=== PATIENT | male | born 1950 | race Caucasian/White ===

== ENCOUNTER 2018-08-10 17:41 | Inpatient (IN) | payer MEDICARE, OTHER ==
[~2018-08-10] VITALS: Ht 170.2 cm; Wt 79.4 kg
[2018-08-10 18:16] VITALS: BP 161/86
[2018-08-10] MEDS ORDERED: NORVASC5 MG PO (18:19)
[2018-08-10] MEDS ORDERED: CARVEDILOL12.5 MG PO (18:19)
[2018-08-10] MEDS ORDERED: PLAVIX 75 MG TA75 M1 PO (18:19)
[2018-08-10] MEDS ORDERED: LIPITOR40 MG PO (18:19)
[2018-08-10] MEDS ORDERED: ASPIR 8181 MG PO (18:19)
[2018-08-10] MEDS ORDERED: VITAMIN D1000 UNI1 PO (18:20)
[2018-08-10] MEDS ORDERED: METFORMIN HCL500 MG PO (18:20)
[2018-08-10] MEDS ORDERED: QUINAPRIL 20 MG20 MG PO (18:20)
[2018-08-10] MEDS ORDERED: IMDUR 30 MG TAB30 M1 PO (18:20)
[2018-08-10] MEDS ORDERED: SYNTHROID125 MC1 PO (18:20)
[2018-08-10 19:16] LABS: INFLUENZA A ANTIGEN None Detected (None Detect); INFLUENZA B ANTIGEN None Detected (None Detect)
[2018-08-10 20:05] LABS: ABSOLUTE BASOPHILS 0.1 thou/uL (0.0-0.2); ABSOLUTE EOSINOPHILS 0.2 thou/uL (0.0-0.7); ABSOLUTE LYMPHOCYTES 1.2 thou/uL (0.8-5.3); ABSOLUTE MONOCYTES 1.7 thou/uL (0.0-1.2); ABSOLUTE NEUTROPHILS 6.8 thou/uL (1.6-8.1); BASOPHILS 1.1 %; EOSINOPHILS 1.9 %; HEMATOCRIT 38.5 % (42.0-52.0); HEMOGLOBIN 12.9 gm/dL (14.0-18.0); LYMPHOCYTES 12.2 %; MCH 31.2 pg (26.0-34.0); MCHC 33.6 g/dL (28.0-37.0); MCV 92.9 fL (80.0-100.0); MONOCYTES 16.9 %; MPV 7.8 fl. (7.2-11.1); NUCLEATED RBCS 0 /100WBC; PLATELET COUNT* 229 thou/uL (150-400); POLYS 67.9 %; RBC 4.14 mil/uL (4.50-6.00); WBC 10.1 thou/uL (4.0-11.0)
[2018-08-10 20:14] LABS: INR 1.1; PROTIME 11.3 Seconds (9.20-11.50)
[2018-08-10 20:15] LABS: CALCIUM 9.1 mg/dL (8.5-10.1); CREATININE 1.2 mg/dL (0.6-1.3)
[2018-08-10 20:27] LABS: ALBUMIN 3.6 g/dL (3.4-5.0); TOTAL BILIRUBIN 0.6 mg/dL (<0.1-1.0); TOTAL PROTEIN 8.2 g/dL (6.4-8.2)
[2018-08-10 20:29] LABS: TROPONIN-I LEVEL 8.79 ng/mL (<0.06)
[2018-08-10 22:00] VITALS: BP 129/55
[2018-08-10 22:16] VITALS: BP 140/60
[2018-08-10 22:28] LABS: URINE BILIRUBIN NEGATIVE (Negative); URINE BLOOD 1+ (Negative); URINE CLARITY CLEAR; URINE COLOR YELLOW; URINE GLUCOSE-RANDOM NEGATIVE (Negative); URINE KETONES NEGATIVE (Negative); URINE NITRITE-REFLEX NEGATIVE (Negative); URINE PROTEIN 2+ (Negative); URINE UROBILINOGEN 0.2 E.U./dl (0.2-1.0)
[2018-08-10 22:31] LABS: URINE LEUKOCYTES-REFLEX 3+ (Negative)
[2018-08-10 22:51] LABS: BACTERIA-REFLEX >30 Many /HPF (None Seen); URINE WBC-REFLEX >25 Many /HPF (0-5)
[2018-08-10 22:52] LABS: CRYSTALS None Seen /LPF (None Seen); HYALINE CASTS 0-3 Few /LPF (None Seen); MUCUS None Seen strn/LPF (None Seen); SQUAMOUS NONE SEEN /LPF (0-3); URINE RBC 0-2 Rare /HPF (0-2); WBC CLUMPS Few (None Seen)
[2018-08-11] VITALS (11 sets, daily range): BP systolic 139–162; BP diastolic 63–81
[2018-08-11 03:05] LABS: BE -1.5 mmol/L (-2 to +3); HCO3 22.6 mmol/L (22.0-26.0); PCO2 36.4 mmHg (35.0-45.0); PO2 77.7 mmHg (75.0-100.0)
--- NOTE | 2018-08-11 04:44 | NUR ---
PT RECEIVED FROM ED. SAT MAINTAINED IN RA. CALL LIGHT WITHIN REACH AND BED IN LOW POSITION. PT VOMITED APPROX AMOUNT 5ML. SAT DECREASED, NOT MAINTAINED IN NC, CONNECTED TO NON-REBREATHER ON 15L, CALLED INFANTRY INDIRECT FIRE CREWMEMBER. SAT 82% WITH NRB. PT KEPT ON BIPAP 100% FIO2. SAT 98%, ABLE TO FOLLOW COMMANDS AND TALK. C-XRAY AND EKG DONE AND CHARTED. DR. SHER INFORMED. ORDERS FOLLOWED FOR CT. PT TRANSFERRED DOWN TO ICU.
--- NOTE | 2018-08-11 08:00 | NUR ---
Pt received from Tele at 0415; transferred due to resp distress which occurred after pt vomited and possibly aspirated. Pt on BIPAP. VSS except T 102.4 axillary. Family members X3 arrived to room soon afterward, including pt's dtr and ( arrived after other 2 visitors). Pt calm and cooperative, reports tolerating BIPAP and mask well. Saeed placed, draining clr yellow urine. IV antibiotics administered. Rash on right side of chest which appears to be caused by [id number] contact between R arm and chest. R arm appears contracted and immobile, and resting against chest. Will continue to monitor.
--- NOTE | 2018-08-11 16:23 | NUR ---
PT TRANSFERRED TO [facility] FLOOR AT 1540 ON A WHEELCHAIR ACCOMPANIED BY TWO FAMILY MEMBERS, AND NURSING STAFF. VSS. SINUS RYHTM ON THE FIRER POWERHOUSE. NO TEMP. 98.8 ORALLY. NO COMPLAINT. DIET ORDERED, PT AWAITING FOR DINNER IN BED. ECHO COMPLETED AT BEDSIDE. PT IN BED CALL LIGHT AT REACH. WILL CONTINUE TO MONITOR.
[2018-08-11 16:46] LABS: CALCIUM 8.1 mg/dL (8.5-10.1); CREATININE 1.2 mg/dL (0.6-1.3); POTASSIUM 3.7 mmol/L (3.5-5.1)
--- NOTE | 2018-08-11 16:56 | EKG ---
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: Reza JACKSON : 1950 Requested By: Alonzo Askew Order Number: [id number] MD: Иван Eric Measurements Intervals [place] Rate: 68 P: 30 OK: 262 QRS: -30 QRSD: 99 T: 134 QT: 417 QTc: 444 Interpretive Statements Sinus rhythm Prolonged OK interval Inferior infarct, old Abnrm T, consider ischemia, anterolateral lds No previous ECG available for comparison Electronically Signed On 08-11-2018 16:56:48 BLUNGER LOADER by Иван Eric [email or web address] <ELECTRONICALLY SIGNED> By: Иван Eric MD, FACC 08/11/18 1656 27 27 Иван Eric MD, [facility] /EPI
--- NOTE | 2018-08-11 17:00 | EKG ---
[place] [address] ELECTROCARDIOGRAM REPORT Name: JERARDO ROMERO V Room: [address] ADM IN M.R.#: [id number] Admission: 08/10/18 Attend Phys: Randolph Amezcua Discharge: Date of : 48 Report #: [id number] THIS REPORT FOR: //name// [facility] Test Date: 2018-08-11 Test Time: 02:51:50 Pat Name: JERARDO ROMERO Department: Room: [facility] Gender: M Logistics Lead: : 1950 Requested By: Kavitha Mojica Order Number: [id number] MD: Иван Eric Measurements Intervals [place] Rate: 114 P: [place]: QRS: -16 QRSD: 85 T: 132 QT: 308 QTc: 425 Interpretive Statements sinus tachycardia Ventricular premature complex Inferior infarct, old Anteroseptal infarct, old Repol abnrm suggests ischemia, diffuse leads No previous ECG available for comparison Electronically Signed On 08-11-2018 17:00:14 MANUFACTURING ENGINEER SUPERVISOR by Иван Eric [email or web address] <ELECTRONICALLY SIGNED> By: Иван Eric MD, [facility] 08/11/18 1700 0251 [id number] Иван Eric MD, [facility] /EPI
--- NOTE | 2018-08-11 17:10 | 2DMMODE ---
[place] [address] 2 D/M-MODE ECHOCARDIOGRAM Name: JERARDO ROMERO V Room: [address] IN [facility]#: [id number] Admission: 08/10/18 Attend Phys: Kavitha Mojica Discharge: Date of : 48 Date of Service: 08/11/18 1709 Report #: [id number] THIS REPORT FOR: //name// APPROVED REPORT Study performed: 08/11/2018 15:55:32 EXAM: Comprehensive 2D, Doppler, and color-flow Echocardiogram Patient Location: In-Patient Room #: 200 Status: routine BSA: 1.91 HR: 63 bpm BP: 153/66 mmHg Rhythm: NSR Other Information Study Quality: Good Indications Acute MS 2D Dimensions IVSd: 12.30 (7-11mm) LVOT Diam: 23.98 (18-24mm) LVDd: 54.30 mm PWd: 10.69 (7-11mm) Ascending Ao: 38.18 (22-36mm) LVDs: 43.15 (25-40mm) Aortic Root: 37.67 mm Volumes Left Atrial Volume (Systole) LA ESV Index: 38.20 mL/m2 Aortic Valve AoV Peak Mayo.: 0.89 m/s AO Peak Gr.: 3.16 mmHg LVOT Max P.85 mmHg AO Mean Gr.: 1.97 mmHg LVOT Mean P.88 mmHg LVOT Max V: 0.68 m/s AO V2 VTI: 23.05 cm LVOT Mean V: 0.43 m/s STONE (VTI): 2.99 cm2 LVOT V1 VTI: 15.29 cm Mitral Valve E/A Ratio: 0.65 MV Decel. Time: 192.69 ms MV E Max Mayo.: 0.75 m/[place] [address] 2 D/M-MODE ECHOCARDIOGRAM Name: JERARDO ROMERO V Room: [address] IN [facility]#: [id number] Admission: 08/10/18 Attend Phys: Kavitha Mojica Discharge: Date of : 48 Date of Service: 08/11/18 1709 Report #: [id number] MV PHT: 55.88 ms MVA (PHT): 3.94 cm2 TDI E/Lateral E': 10.71 E/Medial E': 15.00 Medial E' Mayo.: 0.05 m/s Lateral E' Mayo.: 0.07 m/s Pulmonary Valve PV Peak Mayo.: 0.74 m/s PV Peak Gr.: 2.17 mmHg Left Ventricle The left ventricle is normal size. There is global hypokinesis of the left ventricle. There is normal left ventricular wall thickness. Left ventricular systolic function is moderately decreased. LVEF is 35-40%. Grade I - abnormal relaxation pattern. Right Ventricle The right ventricle is normal size. The right ventricular systolic function is normal. Atria Left atrium is mildly dilated. Right atrium is mildly dilated. Aortic Valve The aortic valve is normal in structure. Trace aortic regurgitation. There is no aortic valvular stenosis. Mitral Valve The mitral valve is normal in structure. Mild mitral regurgitation. No evidence of mitral valve stenosis. Tricuspid Valve The tricuspid valve is normal in structure. Unable to assess PA pressure. Trace tricuspid regurgitation. Pulmonic Valve The pulmonary valve is normal in structure. There is no pulmonic valvular regurgitation. Great Vessels The aortic root is normal in size. IVC is normal in size and collapses >50% [place] [address] 2 D/M-MODE ECHOCARDIOGRAM Name: JERARDO ROMERO Lucia Room: [address] IN [facility]#: [id number] Admission: 08/10/18 Attend Phys: Kavitha Mojica Discharge: Date of : 48 Date of Service: 08/11/18 1709 Report #: [id number] There is no pericardial effusion. <Conclusion> The left ventricle is normal size. There is normal left ventricular wall thickness. Left ventricular systolic function is moderately decreased. LVEF is 35-40%. Grade I - abnormal relaxation pattern. There is global hypokinesis of the left ventricle. Left atrium is mildly dilated. Right atrium is mildly dilated. Trace aortic regurgitation. Mild mitral regurgitation. Unable to assess PA pressure. Trace tricuspid regurgitation. IVC is normal in size and collapses >50% with inspiration. <ELECTRONICALLY SIGNED> By: Иван Eric MD, FACC 08/11/181708 08 08 Иван Eric MD, FACC /INF
[2018-08-11 17:31] LABS: TROPONIN-I LEVEL 20.9 ng/mL (<0.06)
--- NOTE | 2018-08-11 17:33 | NUR ---
TROPONIN LEVEL 20.9. DR KRISHNAMURTHY PAGED . DR KRISHNAMURTHY CALLED BACK AND SAID HE IS AWARE TROPONIN WAS GOING TO BE ELEVATED. THAT HE WILL FOLLOW UP WITH THAT.
[2018-08-12] VITALS (7 sets, daily range): BP systolic 114–137; BP diastolic 50–70
--- NOTE | 2018-08-12 05:31 | NUR ---
patient remains without chest pain this shift. patient denies discomfort. o2 sat maintained on 2l o2 nc although lung sounds remain coarse. patient suspected to be at risk for aspiration due to difficulty swallowing thin liquids and slight cough afterwards. patient remains npo for cardiology consult and ST evaluation. patient verbalizes understanding. pt incontinent of bowel. tl care and barrier cream provided. call light within reach
--- NOTE | 2018-08-12 10:13 | NUR ---
RECEIVED REPORT FROM GEOFF AND ASSUMED CARE OF PT @ 2348.PT IS A/O X4,VSS,TRACING SB WITH 1ST DEGREE ON THE MONITOR.PT REMAINS ON 2L O2 NC.ASSESSMENT CHARTED.IV LEFT FOREARM PATENT AND SALINE LOCKED. IV #2 LEFT FOREARM PATENT AND SALINE LOCKED.IV ANTIBIOTICS GIVEN.MICHELLE SECURE AND PATENT.PT NPO STATUS PENDING CARDIOLOGY SEEING THEM TODAY.PT IS CALM AND COOPERATIVE WITH NO C/O PAIN AT TIME OF ASSESSMENT.PT IS UP WITH ASSIST OF ONE.PT LEFT RESTING IN BED WITH CALL LIGHT AND FALL PRECAUTIONS IN PLACE.WILL COTNINUE TO MONITOR.
--- NOTE | 2018-08-12 15:21 | NUR ---
MET WITH PT TO DISCUSS HOME SITUATION/DC PLANNING. PT LIVES WITH . HE STATES HE IS VERY DEPENDENT ON HER, HE HAS HAD 'STROKES'. CALL TO /DANGELO. SHE IS DPOA AND WILL BRING IN COPY OF FORM. SHE STATED THEY RECENTLY MOVED FROM [place] TO A HANDICAP ACCESSIBLE APT NEAR THEIR DTR/PREM WHO LIVE ACROSS THE STREET. PT HAS RIGHT SIDED WEAKNESS FROM STROKE AND ASSISTS WITH ADLS, AND DOES ALL IADLS. THEY HAVE A STAND ASSIST, MOTORIZED BED, YAQUELIN CANE, W/C AND SHOWER BENCH. PT HAS HAD REHAB STAY IN 2017 WELL SNF IN PAST. HE HAS DONE OUTPT THERAPY AT [facility] IN [place]. SHE IS INTERESTED IN HIM GOING TO REHAB AGAIN IF QUALIFIES, IF NOT, WOULD PREFER TO GO HOME WITH HH SHE'S WORRIED HE'D GET DEPRESSED IN SNF. DISCUSSED HH OPTIONS WITH HER ALSO. SHE HAS NO PREFERENCE. DISCUSSED WITH DR FAGAN, REHAB CONSULT PENDING. WILL FOLLOW
--- NOTE | 2018-08-12 18:32 | NUR ---
VSS.CARDIAC MONITORING IN PLACE WITH NO CHANGES.PT REMAINS ON 2L O2 NC.NO C/O PAIN.PT HAS BEEN REPOSITIONED Q2 HOUR.IV LEFT FOREARM PATENT AND SALINE LOCKED.IV #2 PATENT AND SALINE LOCKED.PT TO BE NPO AT MIDNIGHT FOR CATH IN AM.PT INFORMED OF PLAN OF CARE AND COMMUNICATES UNDERSTANDING.HOURLY ROUNDING COMPELTED FOR PT SAFETY.CALL LIGHT AND FALL PRECAUTIONS IN PLACE.WILL CONTINUE TO MONITOR FOR DURATION OF SHIFT.
[2018-08-13] VITALS (7 sets, daily range): BP systolic 112–169; BP diastolic 58–80
--- NOTE | 2018-08-13 04:46 | NUR ---
RECEIVED REPORT AND ASSUMED CARE AT 1900. VSS. CARDIAC MONITORING IN PLACE. PT DENIES ANY COMPLAINTS OF PAIN. ASSESSMENT COMPLETED CHARTED. DISCUSSED PLAN OF CARE WITH PT, VERBALIZED UNDERSTANDING. PT TO HAVE CARDIAC CATH 08/13/18. NPO AT MIDNIGHT. PT UP WITH ASSIST WITH WALKER. ON 2L NC. BED LOCKED IN LOWEST POSITION, CALL LIGHT WITHIN REACH, BED ALARM ON. POSITION CHANGED EVERY TWO HOURS, HEELS OFF LOADED. HOURLY ROUNDING COMPLETED AND ALL NEEDS MET. WILL CONTINUE TO MONITOR
[2018-08-13 05:12] LABS: ABSOLUTE BASOPHILS 0.1 thou/uL (0.0-0.2); ABSOLUTE EOSINOPHILS 0.4 thou/uL (0.0-0.7); ABSOLUTE LYMPHOCYTES 1.4 thou/uL (0.8-5.3); ABSOLUTE MONOCYTES 0.9 thou/uL (0.0-1.2); ABSOLUTE NEUTROPHILS 5.7 thou/uL (1.6-8.1); BASOPHILS 0.7 %; EOSINOPHILS 4.8 %; HEMATOCRIT 31.5 % (42.0-52.0); LYMPHOCYTES 16.6 %; MCH 31.4 pg (26.0-34.0); MCHC 33.9 g/dL (28.0-37.0); MCV 92.6 fL (80.0-100.0); MONOCYTES 10.9 %; MPV 8.1 fl. (7.2-11.1); NUCLEATED RBCS 0 /100WBC; PLATELET COUNT* 168 thou/uL (150-400); RDW-CV 14.2 % (10.5-14.5); WBC 8.4 thou/uL (4.0-11.0)
[2018-08-13 05:14] LABS: HEMOGLOBIN 10.7 gm/dL (14.0-18.0)
--- NOTE | 2018-08-13 08:18 | CON ---
[address] [address] CONSULTATION Name: JERARDO ROMERO V Room: [address] IN .R.#: [id number] Admission: 08/10/18 Attend Phys: Randolph Amezcua Discharge: Date of : 48 Report #: [id number] THIS REPORT FOR: //name// CC: Caroline Washburn DO Kavitha Mojica DATE OF SERVICE: 08/11/2018 INDICATION: Non-ST elevation myocardial infarction. HISTORY OF PRESENT ILLNESS: The patient is a very pleasant 68-year-old gentleman who was admitted to the hospital with sore throat, cough and right-sided pneumonia. He denied any chest pain. He did have some shortness of breath occasionally. He denies orthopnea. In this setting, he had a troponin of 8. EKG did not show any evidence of ST elevation. The patient has remained pain free since admission to the hospital. He does report having several stents placed in 2015 at [facility]. He also reports having CVA on 2 separate occasions. He presently denies any orthopnea or paroxysmal nocturnal dyspnea. He is without other cardiac complaint at this time. PAST MEDICAL HISTORY: 1. Coronary artery disease with percutaneous coronary intervention remotely. 2. CVA x 2. 3. Hypertension. 4. Dyslipidemia. 5. Type 2 diabetes mellitus. 6. Hypothyroidism. 7. History of cholecystectomy. ALLERGIES: No known drug allergies. HOME MEDICATIONS: Amlodipine 5 mg p.o. q. day, aspirin 81 mg p.o. q. day, atorvastatin 40 mg p.o. q. day, carvedilol 12.5 mg p.o. b.i.d., Plavix 75 mg p.o. q. day, Imdur 30 mg p.o. q. day, levothyroxine 125 mcg p.o. q. day, metformin 500 mg p.o. b.i.d., Accupril 20 mg p.o. b.i.d., vitamin D 1000 units p.o. daily. SOCIAL HISTORY: The patient is . He smoked cigars up until 2 years ago. He does not drink alcohol. FAMILY HISTORY: The patient's father had coronary disease. REVIEW OF SYSTEMS: A 14-point review of systems is positive for right-sided weakness from his strokes. He has had some weight loss [place] [address] CONSULTATION Name: JERARDO ROMERO V Room: [address]#: [id number] Admission: 08/10/18 Attend Phys: Randolph Amezcua Discharge: Date of : 48 Report #: [id number] He reports a fever here in the hospital. He has a cough productive of clear to yellow sputum. He reports diabetes and thyroid disease. He reports seasonal allergies as a child. He denies any history of dysuria, but does have some nocturia. He wears glasses without acute visual change. PHYSICAL EXAMINATION: VITAL SIGNS: Blood pressure 147/69, pulse 64 and regular. GENERAL: This is a pleasant elderly gentleman in no distress. Mood and affect appropriate. HEENT: Extraocular muscles intact. Mucous membranes are moist. NECK: Examination of the neck shows no jugular venous distention. I do not appreciate any carotid bruit. CHEST: Reveals coarse breath sounds throughout. CARDIOVASCULAR: Reveals a regular rhythm with normal S1 and S2. I do not appreciate gallop or murmur. ABDOMEN: Reveals normal bowel sounds. The abdomen is soft, nontender. EXTREMITIES: Shows no edema. Peripheral pulses 2+ and palpable. There is right-sided weakness. A 12-lead EKG shows sinus rhythm without acute ST or T-wave abnormality. NT-proBNP is 7587. Initial troponin is 8.79. IMPRESSION AND RECOMMENDATIONS: 1. Elevated troponin, likely due to non-ST elevation myocardial infarction versus type 2 myocardial infarction with strain secondary to sepsis and heart failure. At this point in time, I have elected to obtain an echocardiogram. May need to proceed with catheterization. Serial troponins have been ordered and are pending. Continue Plavix and aspirin at this time. 2. Hypertension, adequately controlled on current cardiac regimen. 3. Dyslipidemia. Continue atorvastatin at current dose. 4. Acute pneumonia, per primary physician. 5. Acute on chronic heart failure. Echocardiogram ordered. The patient appears relatively compensated at this point in time. <ELECTRONICALLY SIGNED> By: Иван Eric MD, FACC 08/13/18 0818 1538 [id number] Eric MD, FACC /nt
--- NOTE | 2018-08-13 09:11 | NUR ---
RECEIVED INPATIENT REHAB CONSULT AND ACKNOWLEDGED BY DR. MUÑIZ AND BEATER AND PULPER FEEDER. AWAITING PT/TO EVALUATIONS FOR FURTHER INFORMATION ON FUNCTIONAL PERFORMANCE. WILL CONTINUE TO FOLLOW THROUGH POC. THANK YOU
--- NOTE | 2018-08-13 12:16 | NUR ---
VSS, ASSUMED CARE THIS AM, ASSESSMENT PERFORMED AND CHARTED, FALL PRECAUTIONS IN PLACE AND CALL LIGHT IN REACH, PT IS A&O4, ON 2L NC, UP QITH ONE TO BEDSIDE, PT IS TRACIG SR ON THE MONITOR, HAS MICHELLE IN PLACE AND IS DRAINIG, PT GOAL IS TO SIT UP IN CHAIR, HE HAS RIGHT ARMWEAKNWSS FROM ILD STROKW, HW IS AT RISK FOR ASPIRATION AND SPEECH IS WORKING WITH HIM, PT MIGHT HEART CATH TODAY AND IS NPO. WILL FOLLOW WITH PLAN OF CARE.
--- NOTE | 2018-08-13 14:12 | NUR ---
RE: CHF medication education. Met with patient to discuss heart failure medication. Pt's present during discussion. Review focused on carvedilol, lisinopril & isosorbide. Discussed rationale for therapy and importance of compliance with prescribed regimen. Reviewed possible side effects and potential management strategies. Left medication information sheet with patient. Provided pharmacy contact information for any further questions or issues. thank you.
--- NOTE | 2018-08-13 18:03 | NUR ---
vss, PT IS PROGRESSING TOWARD GOAL, PT HAS BEEN UP IN CHAIR, WORKED WITH PT/OT/ST, HOURLY ROUNDS COMPLETED AND CHART CHECKED.
[2018-08-14] VITALS: BP 146/51
[2018-08-14 04:00] VITALS: BP 163/66
--- NOTE | 2018-08-14 04:55 | NUR ---
ASSUMED PT CARE AT 1930, NURSING ASSESSMENT COMPLETED AT START OF SHIFT. PT VOICED NO CONCERNS, DENIES PAIN THIS SHIFT. SUPERVISOR ENGRAVING IN PLACE, TRACING SINUS BRADYCARDIA/SINUS RHYTHM THIS SHIFT, HR IN MID 40S-MID 60'S. HOURLY ROUNDING COMPLETED, Q2H REPOSITIONING COMPLETED. FALL PRECAUTIONS IN PLACE. CALL LIGHT WITHIN REACH.
[2018-08-14 08:11] VITALS: BP 170/72
[2018-08-14 08:46] LABS: ABSOLUTE BASOPHILS 0.1 thou/uL (0.0-0.2); ABSOLUTE EOSINOPHILS 0.3 thou/uL (0.0-0.7); ABSOLUTE LYMPHOCYTES 1.3 thou/uL (0.8-5.3); ABSOLUTE MONOCYTES 0.8 thou/uL (0.0-1.2); ABSOLUTE NEUTROPHILS 4.9 thou/uL (1.6-8.1); BASOPHILS 1.1 %; EOSINOPHILS 4.6 %; HEMATOCRIT 32.5 % (42.0-52.0); HEMOGLOBIN 11.2 gm/dL (14.0-18.0); MCH 31.7 pg (26.0-34.0); MCHC 34.6 g/dL (28.0-37.0); MCV 91.6 fL (80.0-100.0); MONOCYTES 10.9 %; MPV 7.9 fl. (7.2-11.1); NUCLEATED RBCS 0 /100WBC; PLATELET COUNT* 205 thou/uL (150-400); POLYS 66.4 %; RBC 3.54 mil/uL (4.50-6.00); RDW-CV 13.8 % (10.5-14.5); WBC 7.4 thou/uL (4.0-11.0)
--- NOTE | 2018-08-14 11:59 | NUR ---
Pt has opted to dc home with HH. Spoke with Pt and , referral sent to [facility] . in room and will transport
[2018-08-14 12:00] VITALS: BP 135/60; BP 137/66
--- NOTE | 2018-08-14 12:08 | NUR ---
VSS, ASSUMED CARE OF PT THIS AM, ASSESSMENT PERFORMED AND CHARTED, FALL PRECAUTIONS IN PLACE AND CALL LIGHT IN REACH, PT IS A&O4 UP WITH ONE, BELT, WALKER, TO BS, HE IS TRACING SR ON THE MONITOR ON RA, DENIES ANY PAIN, HAS RIGHT ARM WEAKNESS, PT GOAL IS TO D/C MICHELLE, D/C TO HOME, AND SIT UP IN CHAIR, WILL FOLLOW WITH PLAN OF CARE AND HOURLY ROUNDS.
[2018-08-14 13:10] VITALS: BP 137/66
--- NOTE | 2018-08-14 14:21 | NUR ---
SPOKE WITH PT AND IN ROOM. PT HAS DETERMINED HE IS WANTING TO GO HOME WITH HH AT THIS TIME VS INPATIENT REHAB. THANK YOU FOR THE CONSULT
--- NOTE | 2018-08-14 14:35 | NUR ---
VSS, FILLED OUT D/C ORDERS, TOOK OUT IV, AND TELE MONITOR, PROVITED DR FOLLOW UP APPOINTMENT, EXPLAINED D/C INSTRUCTIONS, HELPED GATHERED PT BELONGINGS, TOOK OUT MICHELLE CATH, PT WAS TAKEN OUT VIA WHEEL CHAIR TO CAR BY STAFF,
== END 2018-08-14 14:20 | disposition home health service (06) | DRG 871 ==
LOC: M.ERS 17:41 → M.2W 20:35 → M.TBA-ER 20:35 → M.ICU 20:35 → M.2W 22:58 → M.ICU 08-11 04:14 → M.2W 08-11 15:00
PROVIDERS: Family Medicine; Internal Medicine; Internal Medicine Cardiovascular Disease; Nurse Practitioner Family; ADMIT Internal Medicine
PROC: 5A09357 Assistance with Respiratory Ventilation, Less than 24 Consecutive Hours, Continuous Positive Airway Pressure (ICD-10-PCS; principal; 2018-08-11)
DX: A41.9 Sepsis, unspecified organism (principal); I21.4 Non-ST elevation (NSTEMI) myocardial infarction; J69.0 Pneumonitis due to inhalation of food and vomit; J96.21 Acute and chronic respiratory failure with hypoxia; E03.9 Hypothyroidism, unspecified; I25.10 Atherosclerotic heart disease of native coronary artery without angina pectoris; E78.5 Hyperlipidemia, unspecified; I11.0 Hypertensive heart disease with heart failure; I50.9 Heart failure, unspecified; Z86.73 Personal history of transient ischemic attack (TIA), and cerebral infarction without residual deficits; I25.2 Old myocardial infarction; Z90.49 Acquired absence of other specified parts of digestive tract; Z82.49 Family history of ischemic heart disease and other diseases of the circulatory system; Z87.891 Personal history of nicotine dependence; Z79.82 Long term (current) use of aspirin; Z79.899 Other long term (current) drug therapy

== ENCOUNTER 2018-11-06 16:31 | Inpatient (IN) | payer MEDICARE, OTHER ==
[~2018-11-06] VITALS: Ht 172.7 cm; Wt 75.4 kg
[~2018-11-06 16:31] MED LIST: ASPIR 8181 MG PO; CARVEDILOL12.5 MG PO; IMDUR 30 MG TAB30 M1 PO; LIPITOR40 MG PO; METFORMIN HCL500 MG PO; NORVASC5 MG PO; PLAVIX 75 MG TA75 M1 PO; QUINAPRIL 20 MG20 MG PO; SYNTHROID125 MC1 PO; VITAMIN D1000 UNI1 PO
[2018-11-06 16:38] VITALS: BP 120/87
[2018-11-06] MEDS ORDERED: LEVAQUIN 500 M500 M3 PO (16:45)
[2018-11-06] MEDS ORDERED: ULTRAM 50MG TAB50 MG PO (16:45)
[2018-11-06 17:06] LABS: ABSOLUTE BASOPHILS 0.1 thou/uL (0.0-0.2); ABSOLUTE EOSINOPHILS 0.4 thou/uL (0.0-0.7); ABSOLUTE LYMPHOCYTES 1.3 thou/uL (0.8-5.3); ABSOLUTE NEUTROPHILS 5.8 thou/uL (1.6-8.1); BASOPHILS 0.7 %; EOSINOPHILS 4.3 %; HEMATOCRIT 32.7 % (42.0-52.0); HEMOGLOBIN 10.9 gm/dL (14.0-18.0); LYMPHOCYTES 15.3 %; MCH 30.2 pg (26.0-34.0); MCHC 33.3 g/dL (28.0-37.0); MCV 90.7 fL (80.0-100.0); MONOCYTES 11.2 %; MPV 7.3 fl. (7.2-11.1); NUCLEATED RBCS 0 /100WBC; PLATELET COUNT* 265 thou/uL (150-400); POLYS 68.5 %; RDW-CV 15.6 % (10.5-14.5); WBC 8.5 thou/uL (4.0-11.0)
[2018-11-06 17:15] LABS: INR 1.2; PROTIME 11.8 Seconds (9.20-11.50)
[2018-11-06 17:17] LABS: ALBUMIN 3.5 g/dL (3.4-5.0); CALCIUM 9.1 mg/dL (8.5-10.1); CREATININE 1.3 mg/dL (0.6-1.3); POTASSIUM 4.1 mmol/L (3.5-5.1); TOTAL BILIRUBIN 0.5 mg/dL (<0.1-1.0); TOTAL PROTEIN 7.7 g/dL (6.4-8.2)
[2018-11-06 18:09] LABS: BE -2.4 mmol/L (-2 to +3); PO2 89.2 mmHg (75.0-100.0); pH 7.496 (7.340-7.450)
[2018-11-06 21:26] LABS: URINE BILIRUBIN NEGATIVE (Negative); URINE BLOOD TRACE (Negative); URINE CLARITY CLEAR; URINE COLOR YELLOW; URINE GLUCOSE-RANDOM NEGATIVE (Negative); URINE KETONES TRACE (Negative); URINE LEUKOCYTES-REFLEX 1+ (Negative); URINE NITRITE-REFLEX NEGATIVE (Negative); URINE PROTEIN 2+ (Negative); URINE SPECIFIC GRAVITY 1.025 (1.005-1.030)
[2018-11-06 21:34] LABS: SQUAMOUS >10 Many /LPF (0-3)
[2018-11-06 21:35] LABS: CASTS None Seen /LPF (None Seen); CRYSTALS None Seen /LPF (None Seen); MUCUS 0-3 Light strn/LPF (None Seen); URINE RBC None Seen /HPF (0-2); URINE WBC-REFLEX >25 Many /HPF (0-5)
[2018-11-06 22:08] VITALS: BP 138/75
[2018-11-06 23:00] VITALS: BP 150/67
[2018-11-07 04:00] VITALS: BP 154/85
--- NOTE | 2018-11-07 04:53 | NUR ---
RECEIVED REPORT FROM ED RN. PT TRANSFERRED TO 207. PT A&OX4. VSS. FUNERAL HOME GENERAL MANAGER IN PLACE. ADMISSION HISTORY & PHYSICAL ASSESSMENT COMPLETED AND CHARTED. FALL FORM SIGNED. PT ORIENTED TO ROOM AND CALL LIGHT. PT DENIES ANY PAIN OR DISCOMFORT. PT RESTED WELL ON BED . HOURLY ROUNDING OBSERVED. CALL LIGHT WITHIN REACH.
[2018-11-07 08:00] VITALS: BP 144/78
[2018-11-07 11:26] VITALS: BP 132/67
--- NOTE | 2018-11-07 11:53 | EKG ---
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: Manager Financial Reporting: Reza JACKSON : 1950 Requested By: Ronit Marques Order Number: [id number] MD: Robin Purcell Measurements Intervals [place] Rate: 66 P: 33 ND: 280 QRS: 11 QRSD: 100 T: -75 QT: 427 QTc: 448 Interpretive Statements Sinus rhythm Ventricular premature complex Prolonged ND interval Borderline low voltage, extremity leads Borderline repolarization abnormality Baseline wander in lead(s) V2 Compared to ECG 08/11/2018 02:51:50 First degree AV block now present Sinus tachycardia no longer present Myocardial infarct finding no longer present Possible ischemia no longer present Electronically Signed On 11-07-2018 11:53:23 CDT by Robin Purcell [email or web address] <ELECTRONICALLY SIGNED> By: Robin Purcell MD, [facility] 11/07/18 1153 1644 1644 Robin Purcell MD, [facility] /EPI
[2018-11-07 13:44] LABS: HEMOGLOBIN 10.6 gm/dL (14.0-18.0)
[2018-11-07 13:52] LABS: CREATININE 1.2 mg/dL (0.6-1.3); POTASSIUM 3.5 mmol/L (3.5-5.1)
[2018-11-07 14:20] LABS: % SATURATION 10 % (20-39); IRON 24 ug/dL (50-175)
[2018-11-07 17:14] VITALS: BP 129/64
--- NOTE | 2018-11-07 17:36 | NUR ---
PATIENT RESTING IN BED. AT BEDSIDE. PATIENT DENIES ANY PAIN. PATIENT DENIES ANY TROUBLE BREATHING. PATIENT HAS FAIR APPETITE. PATIENT DENIES ANY NEEDS AT THIS TIME. CALL LIGHT WITHIN REACH. WILL CONTINUE TO MONITOR.
[2018-11-07 20:00] VITALS: BP 140/76
[2018-11-07 23:40] VITALS: BP 165/93
[2018-11-08 03:54] VITALS: BP 105/51
[2018-11-08 05:00] LABS: HEMATOCRIT 30.3 % (42.0-52.0); HEMOGLOBIN 10.3 gm/dL (14.0-18.0); MCH 30.4 pg (26.0-34.0); MCV 89.4 fL (80.0-100.0); MPV 7.9 fl. (7.2-11.1); RBC 3.39 mil/uL (4.50-6.00); RDW-CV 15.6 % (10.5-14.5); WBC 8.1 thou/uL (4.0-11.0)
[2018-11-08 05:55] LABS: CALCIUM 8.7 mg/dL (8.5-10.1); CREATININE 1.3 mg/dL (0.6-1.3); MAGNESIUM 1.6 mg/dL (1.8-2.4); POTASSIUM 3.2 mmol/L (3.5-5.1)
--- NOTE | 2018-11-08 05:57 | NUR ---
ASSUMED CARE OF PT AFTER REPORT AT 1930. PT A&OX4. VSS. PHYSICAL ASSESSMENT COMPLETED AND CHARTED. PT ON O2 AT 2L NC WITH 99% O2 SAT. PT TRACING SR 1ST DEG ON TELE. PT DENIES ANY PAIN OR DISCOMFORT. PT TURNED TO SIDES. PT RESTED WELL ONBED. CALL LIGHT WITHIN REACH.
[2018-11-08 05:58] LABS: TROPONIN-I LEVEL 2.21 ng/mL (<0.06)
--- NOTE | 2018-11-08 07:15 | NUR ---
CHANGE OF SHIFT, BEDSIDE REPORT GIVEN PATIENT SEEN IN BED ASLEEP ASSUMED PAIENT CARE
[2018-11-08 08:00] VITALS: BP 138/77
[2018-11-08 11:32] VITALS: BP 109/59
[2018-11-08 20:20] VITALS: BP 134/77
[2018-11-09 00:15] VITALS: BP 138/68
[2018-11-09 04:20] VITALS: BP 133/76
[2018-11-09 04:47] LABS: CALCIUM 8.4 mg/dL (8.5-10.1); CREATININE 1.5 mg/dL (0.6-1.3); POTASSIUM 3.8 mmol/L (3.5-5.1)
--- NOTE | 2018-11-09 06:45 | NUR ---
VITALLY STABLE, NO CHEST PAIN AND WITH RIGHT SIDED WEAKNESS.STILL ON O2 NC AT 2LPM.NO EDEMA NOTED AT LOWER EXTRIMITIES.
[2018-11-09 08:00] VITALS: BP 138/74
[2018-11-09 12:15] VITALS: BP 105/58
[2018-11-09] MEDS ORDERED: CEFDINIR300 MG PO (12:25)
[2018-11-09] MEDS ORDERED: SPIRONOLACTONE25 MG PO (12:25)
[2018-11-09] MEDS ORDERED: MIRALAX17 GM PO (12:25)
--- NOTE | 2018-11-09 13:42 | NUR ---
ORDER RECEIVED FOR "OT EVALUATION AND TREATMENT". SPOKE WITH RN, WHO STATES THAT PATIENT IS GOING HOME. WILL D/C FROM OT [facility].
--- NOTE | 2018-11-09 14:07 | NUR ---
Pt is A&O. Resides at home with his . Current with [facility]. Pt discharging to home today, faxed resumption orders to [facility].
--- NOTE | 2018-11-10 17:24 | CON ---
[address] [address] CONSULTATION Name: ROMEROJERARDO V Room: [address] IN M.R.#: [id number] Admission: 11/06/18 Attend Phys: Leny Yeager MD Discharge: 11/09/18 Date of : 48 Report #: [id number] THIS REPORT FOR: //name// CC: Leny Washburn DO DATE OF SERVICE: 11/07/2018 CARDIOLOGY CONSULTATION HISTORY OF PRESENT ILLNESS: The patient is a 68-year-old white male who I was asked to see in the hospital today after he complained of being short of breath. The patient has an extensive past medical history. Unfortunately, not a lot of his old records available. He has a long history of hypertension, diabetes. Apparently about 4 years ago, he was seen by Dr. Bee and underwent coronary artery stenting at [facility]. Unfortunately, following the procedure, he had a stroke and was left with dense right-sided hemiplegia. He is now basically bedridden. He denies any recent chest pain, palpitations or syncope. He ambulates only with assistance. In the last few days, he has had increasing shortness of breath and edema. He went to see his primary care physician who sent him to the Emergency Room. He was admitted for further evaluation and treatment. He denies recent fever or cough. PAST MEDICAL HISTORY: He has had cholecystectomy, kidney stone removal, hypertension, diabetes. MEDICATIONS ON ADMISSION: Consists of amlodipine, aspirin, Lipitor, carvedilol, Plavix, Synthroid, metformin, quinapril, Imdur. ALLERGIES: He has no known drug allergies. FAMILY HISTORY: His father in his 40s. SOCIAL HISTORY: He is . He and his live in [place]. No smoking. Rarely drinks alcohol. REVIEW OF SYSTEMS: He has had apparently more than one stroke in the past. He had asthma as a child. No history of liver disease, cancer, psychiatric illness or chronic skin condition. PHYSICAL EXAMINATION: GENERAL: Revealed an elderly male, lying in bed. He appeared in no acute distress. VITAL SIGNS: He had a blood pressure of 140/80, pulse 60. He is afebrile. HEENT: He is anicteric. Conjunctivae pink. [place]ucous [place] [address] CONSULTATION Name: JERARDO ROMERO V Room: [address]#: [id number] Admission: 11/06/18 Attend Phys: Leny Yeager MD Discharge: 11/09/18 Date of : 48 Report #: [id number] NECK: Neck veins do not appear distended. CHEST: Clear to auscultation. CARDIOVASCULAR: Regular rate and rhythm. ABDOMEN: Soft. EXTREMITIES: No edema. SKIN: Cool and dry. NEUROLOGIC: He has dense right hemiplegia. LABORATORY DATA: His workup, he actually had an echocardiogram in August here at [place] that showed ejection fraction of only 40% with biatrial enlargement. His workup in the Emergency Room yesterday, he had a portable chest x-ray that showed cardiomegaly, some atelectasis. No pulmonary edema. CT scan of the chest was done yesterday using a PE protocol that showed no pulmonary embolus, small nodule, some atelectasis. Venous duplex scan of his legs was done yesterday that showed no evidence of DVT. He had lab work, sodium 138, creatinine 1.3, glucose 140, albumin 3.5. His troponin is 4.13, although of note, in August it was 9.43. BNP 28,504. White blood cell count 8.5, hemoglobin 10.9, it was 10.7 in August. IMPRESSION AND RECOMMENDATIONS: 1. Non-ST segment elevation myocardial infarction, chronic elevation of troponin. No history of angina. ECG on admission showed no significant ST or T-wave changes. I would continue aspirin a day. 2. Acute on chronic systolic heart failure. The patient has been on beta polly, JOI inhibitor. I would recommend adding Aldactone. 3. Previous coronary artery stenting. No recent angina. I would continue aspirin 81 mg a day. 4. Previous stroke with right hemiplegia. The patient is basically bedridden. 5. History of kidney stone. 6. Diabetes. <ELECTRONICALLY SIGNED> By: Robin Purcell MD, [facility] 11/10/18 1724 0958 [id number] Purcell MD, FACC /nt
== END 2018-11-09 14:45 | disposition home health service (06) | DRG 177 ==
LOC: M.ERS 16:31 → M.TBA-ER 21:33 → M.2W 21:33
PROVIDERS: Internal Medicine Cardiovascular Disease; Personal Emergency Response Attendant; ADMIT Internal Medicine
DX: J15.6 Pneumonia due to other Gram-negative bacteria (principal); I21.4 Non-ST elevation (NSTEMI) myocardial infarction; I50.43 Acute on chronic combined systolic (congestive) and diastolic (congestive) heart failure; I69.351 Hemiplegia and hemiparesis following cerebral infarction affecting right dominant side; I11.0 Hypertensive heart disease with heart failure; E03.9 Hypothyroidism, unspecified; D64.9 Anemia, unspecified; E78.5 Hyperlipidemia, unspecified; E11.9 Type 2 diabetes mellitus without complications; I25.10 Atherosclerotic heart disease of native coronary artery without angina pectoris; Z95.5 Presence of coronary angioplasty implant and graft; Z79.4 Long term (current) use of insulin; Z79.84 Long term (current) use of oral hypoglycemic drugs; I25.2 Old myocardial infarction; Z90.49 Acquired absence of other specified parts of digestive tract; Z79.82 Long term (current) use of aspirin; Z87.442 Personal history of urinary calculi

== ENCOUNTER 2019-03-21 19:02 | Inpatient (IN) | payer MEDICARE, OTHER ==
[~2019-03-21] VITALS: Ht 152.4 cm; Wt 74.4 kg
[~2019-03-21 19:02] MED LIST changes: +CEFDINIR300 MG PO; +LEVAQUIN 500 M500 M3 PO; +MIRALAX17 GM PO; +SPIRONOLACTONE25 MG PO; +ULTRAM 50MG TAB50 MG PO
[2019-03-21 19:03] VITALS: BP 129/85
[2019-03-21 19:52] LABS: ABSOLUTE BASOPHILS 0.1 thou/uL (0.0-0.2); ABSOLUTE EOSINOPHILS 0.1 thou/uL (0.0-0.7); ABSOLUTE LYMPHOCYTES 1.2 thou/uL (0.8-5.3); ABSOLUTE MONOCYTES 1.7 thou/uL (0.0-1.2); ABSOLUTE NEUTROPHILS 11.2 thou/uL (1.6-8.1); BASOPHILS 0.9 %; EOSINOPHILS 0.5 %; HEMATOCRIT 32.8 % (42.0-52.0); HEMOGLOBIN 10.8 gm/dL (14.0-18.0); LYMPHOCYTES 8.6 %; MCH 30.5 pg (26.0-34.0); MCV 92.3 fL (80.0-100.0); MONOCYTES 11.7 %; MPV 8.2 fl. (7.2-11.1); NUCLEATED RBCS 0 /100WBC; PLATELET COUNT* 240 thou/uL (150-400); POLYS 78.3 %; RBC 3.56 mil/uL (4.50-6.00); WBC 14.2 thou/uL (4.0-11.0)
[2019-03-21 20:01] LABS: INR 1.1; PROTIME 11.5 Seconds (9.20-11.50)
[2019-03-21 20:05] LABS: ANION GAP 14 mmol/L (7-16); BUN 34 mg/dL (7-18); CALCIUM 8.8 mg/dL (8.5-10.1); CHLORIDE 102 mmol/L (98-107); CO2 22 mmol/L (21-32); CREATININE 1.9 mg/dL (0.6-1.3); GLUCOSE 160 mg/dL (70-99); POTASSIUM 4.4 mmol/L (3.5-5.1); SODIUM 138 mmol/L (136-145)
[2019-03-21 20:08] LABS: INFLUENZA A ANTIGEN Negative (Negative); INFLUENZA B ANTIGEN Negative (Negative)
[2019-03-21 20:15] LABS: ALBUMIN 3.5 g/dL (3.4-5.0); ALKALINE PHOSPHATASE 69 U/L (46-116); LIPASE 70 U/L (73-393); NT-PRO BRAIN NAT PEPTIDE > 35000 pg/mL (<300); SGOT 55 U/L (15-37); SGPT 20 U/L (30-65); TOTAL BILIRUBIN 0.8 mg/dL (<0.1-1.0); TOTAL PROTEIN 7.4 g/dL (6.4-8.2)
[2019-03-21 20:16] LABS: TROPONIN-I LEVEL 9.01 ng/mL (<0.06)
[2019-03-21 21:48] VITALS: BP 108/81
[2019-03-21 21:59] VITALS: BP 115/82
[2019-03-21 21:59] LABS: URINE BILIRUBIN NEGATIVE (Negative); URINE BLOOD NEGATIVE (Negative); URINE CLARITY CLEAR; URINE COLOR YELLOW; URINE GLUCOSE-RANDOM NEGATIVE (Negative); URINE KETONES NEGATIVE (Negative); URINE LEUKOCYTES-REFLEX TRACE (Negative); URINE NITRITE-REFLEX NEGATIVE (Negative); URINE PROTEIN 1+ (Negative); URINE SPECIFIC GRAVITY 1.025 (1.005-1.030); URINE UROBILINOGEN 0.2 E.U./dl (0.2-1.0)
[2019-03-21 22:25] LABS: SQUAMOUS >10 Many /LPF (0-3)
[2019-03-21 22:26] LABS: HYALINE CASTS 0-3 Few /LPF (None Seen); URINE RBC None Seen /HPF (0-2); URINE WBC-REFLEX 6-15 Few /HPF (0-5)
[2019-03-21 22:27] LABS: CRYSTALS None Seen /LPF (None Seen)
[2019-03-21 23:00] VITALS: BP 108/64
[2019-03-21 23:51] LABS: HEMATOCRIT 32.8 % (42.0-52.0); HEMOGLOBIN 10.8 gm/dL (14.0-18.0); MCH 30.7 pg (26.0-34.0); MCHC 33.1 g/dL (28.0-37.0); MCV 92.8 fL (80.0-100.0); MPV 8.2 fl. (7.2-11.1); RBC 3.53 mil/uL (4.50-6.00); RDW-CV 17.4 % (10.5-14.5); WBC 14.8 thou/uL (4.0-11.0)
[2019-03-22] VITALS (19 sets, daily range): BP systolic 90–122; BP diastolic 45–89
--- NOTE | 2019-03-22 06:19 | NUR ---
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
--- NOTE | 2019-03-22 09:33 | NUR ---
PATIENT HAS MADE DECISION TO REFUSE CARDIAC CATH AFTER SPEAKING WITH CARDIOLOGY. DR CORONADO NOTIFIED. MILL HAND PLATE MILL NOTIFIED. DR GARCIA NOTIFIED. DIET ORDER RECIEVED BY HOSPITALIST.
--- NOTE | 2019-03-22 12:01 | NUR ---
Pt is A&O. Resides at home with his . completes all IADLS and assist Pt with ADLs. Per Pt, he is wc bound, uses a stand lift for transfers. Pt also has a cane and walker at home. Hx of [facility]. No hx of SNF. Hx of rehab at [facility]. Goal is home with HH at pr. 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 Continue to treat medically.
--- NOTE | 2019-03-22 17:10 | EKG ---
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[place] : 1950 Requested By: Alonzo Askew Order Number: [id number] MD: Robin Purcell Measurements Intervals [place] Rate: 116 P: GA: QRS: 26 QRSD: 102 T: 173 QT: 349 QTc: 485 Interpretive Statements Junctional tachycardia Inferior infarct, old Lateral leads are also involved Compared to ECG 11/06/2018 16:44:06 Junctional tachycardia now present Sinus rhythm no longer present Ventricular premature complex(es) no longer present Electronically Signed On 03-22-2019 17:09:53 CDT by Robin Purcell [email or web address] <ELECTRONICALLY SIGNED> By: Robin Purcell MD, [facility] 03/22/19 1709 08 08 Robin Purcell MD, [facility] /EPI
--- NOTE | 2019-03-22 17:12 | NUR ---
PATIENT PROGRESSING TOWARDS GOALS. APTT NOW THERAPUETIC. NO CHANGES MADE AND REDRAW ENTERED FROM 1900 TONIGHT. PATIENT REPORTS MINIMAL CHEST PRESSURE. HES STATED "IT IS ALMOST COMPLETELY GONE". HAS BEEN RESTING ON AND OFF. POOR APPETITE NOTED. AND FAMILY PRESENT AT BEDSIDE. ALL QUESTIONS ANSWERED.
--- NOTE | 2019-03-22 17:15 | EKG ---
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1950 Requested By: Anthony García Order Number: [id number] Reading MD: Robin Purcell Measurements Intervals [place] Rate: 63 P: 0 CA: 273 QRS: 22 QRSD: 100 T: 149 QT: 419 QTc: 429 Interpretive Statements Sinus rhythm Atrial premature complex Prolonged CA interval Inferior infarct, old Abnrm T, consider ischemia, anterolateral lds Electronically Signed On 03-22-2019 17:15:36 CDT by Robin Purcell [email or web address] <ELECTRONICALLY SIGNED> By: Robin Purcell MD, [facility] 03/22/19 1715 4 4 Robin Purcell MD, FAC /EPI
[2019-03-23] VITALS (11 sets, daily range): BP systolic 94–130; BP diastolic 42–69
[2019-03-23 03:47] LABS: ABSOLUTE BASOPHILS 0.1 thou/uL (0.0-0.2); ABSOLUTE EOSINOPHILS 0.2 thou/uL (0.0-0.7); ABSOLUTE LYMPHOCYTES 1.3 thou/uL (0.8-5.3); ABSOLUTE MONOCYTES 1.1 thou/uL (0.0-1.2); ABSOLUTE NEUTROPHILS 4.8 thou/uL (1.6-8.1); BASOPHILS 1.1 %; EOSINOPHILS 3.1 %; HEMATOCRIT 26.9 % (42.0-52.0); LYMPHOCYTES 17.4 %; MCH 31.4 pg (26.0-34.0); MCHC 33.6 g/dL (28.0-37.0); MCV 93.6 fL (80.0-100.0); MONOCYTES 15.2 %; MPV 8.4 fl. (7.2-11.1); NUCLEATED RBCS 0 /100WBC; PLATELET COUNT* 169 thou/uL (150-400); POLYS 63.2 %; RBC 2.88 mil/uL (4.50-6.00); WBC 7.5 thou/uL (4.0-11.0)
[2019-03-23 03:56] LABS: CALCIUM 8.1 mg/dL (8.5-10.1); CREATININE 1.8 mg/dL (0.6-1.3); POTASSIUM 4.1 mmol/L (3.5-5.1)
--- NOTE | 2019-03-23 05:19 | NUR ---
ASSUMED CARE AT 1910H, ON NC AT 2LPM, WELL TOLERATED AND ON HEPARIN DRIP.NO BLEEDING AND RESPIRATORY DISTRESS NOTED. NO CHEST PAIN.CONTINUE MONITORING AND TOWARDS GOALS.
--- NOTE | 2019-03-23 08:38 | NUR ---
AALIYAH ROACH'Davon AT 0815. 250ML INFUSED
--- NOTE | 2019-03-23 11:31 | NUR ---
ICU rounds: Pt is tele status. Episode of vomitting post breakfast. Possible dc to home tomorrow.
[2019-03-24] VITALS: BP 116/54
--- NOTE | 2019-03-24 03:12 | NUR ---
ASSUMED CARE OF PATIENT AT 1900. PATIENT TELE STATUS. PATIENT TRANSFERRED TO TELE FLOOR, ROOM 223 AT 2100. BEDSIDE REPORT GIVEN TO YANN GONZALEZ.
[2019-03-24 04:00] VITALS: BP 88/43
--- NOTE | 2019-03-24 05:19 | NUR ---
RECEIVED REPORT FROM SPINNING MULE TENDER AND ASSUMED CARE OF PATIENT. AGREE WITH SPINNING MULE TENDERBIOPHYSICS PROFESSOR. PATIENT DENIES PAIN AND DISCOMFORT. VSS ON ROOM AIR. PATIENT INCONTINENT OF URINE AT TIMES. KAREN CARE PROVIDED WITH INCONTINENCE CHECKS AND REPOSITIONED Q2H. PATIENT POSSIBLY TO DISCHARGE HOME TODAY. CALL LIGHT WITHIN REACH
[2019-03-24 08:00] VITALS: BP 98/48
[2019-03-24 12:08] VITALS: BP 95/45
[2019-03-24] MEDS ORDERED: QUINAPRIL 20 MG20 MG PO (13:28)
--- NOTE | 2019-03-24 14:35 | NUR ---
[facility] NOTED FOR DC HOME WITH HH. MET WITH PT AND , HE HAS BEEN ON SERVICE WITH [facility] AND THEY WANT TO CONTINUE WITH THEM. CALLED AND FAXED ORDERS TO [facility].
[2019-03-24] MEDS ORDERED: CARVEDILOL3.125 MG PO (14:53)
--- NOTE | 2019-03-24 15:11 | NUR ---
PT A/O. TELE TRACKING SR 1AVB DEGREE AVB AND ALL VSS ON ROOM AIR. DENIES CP, SOA. EDUCATED ON SAFETY AND PLAN OF CARE. PLEASE SEE ASSESSMENT FOR ADDITIONAL INFORMATION. FAMILY AT BEDSIDE. DC WITH ALL BELONGINGS AND VERBALIZE UNDERSTANDING OF ALL DC INSTRUCTIONS AT 1500.
--- NOTE | 2019-03-24 16:36 | CON ---
[address] [address] CONSULTATION Name: JERARDO ROMERO Room: [address] IN M.R.#: [id number] Admission: 03/21/19 Attend Phys: Anthony García MD Discharge: 03/24/19 Date of : 48 Report #: [id number] THIS REPORT FOR: //name// CC: Anthony García [facility] DATE OF SERVICE: 03/22/2019 CARDIOLOGY CONSULTATION HISTORY OF THE PRESENT ILLNESS: The patient is a 69-year-old white male who I was asked to see in the hospital today after he developed evidence of a non-STEMI. The patient has an extensive past medical history. He initially presented in 2014 with shortness of breath and chest pain. He apparently had a coronary artery stent placed by Dr. Bee at [facility]. Apparently 6 months later, he had recurrent chest pain and shortness of breath. Dr. Bee placed another coronary stent from the radial artery. According to the at the time of coronary stenting, the patient had a stroke with right-sided weakness. He had another stroke a year later, also affecting his right side. He has basically been bedridden since that time and uses a wheelchair. The patient was doing well until about 3 days ago began to vomit. He had no appetite, noticed some chest discomfort and shortness of breath. Last night, the vomiting became worse. An ambulance was called. He was brought here to [place]. He ruled in for non-STEMI. I was asked to see him for further evaluation and treatment. He denied diaphoresis or fever. He has had a cough. Denied any palpitations. PAST MEDICAL HISTORY: He has had cataract extraction, cholecystectomy, kidney stone removal, diabetes, hypertension and hyperlipidemia. MEDICATIONS: Consists of the following list. He is on aspirin, Plavix, Norvasc, Lipitor, carvedilol, Isordil, Synthroid, metformin, quinapril, spironolactone and tramadol. ALLERGIES: He has no known drug allergies. FAMILY HISTORY: His father of heart attack. SOCIAL HISTORY: He is . He and his , who used to live near [place], now live here close to [place] in [place]. 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 No smoking or alcohol abuse. REVIEW OF SYSTEMS: He has had a previous history of asthma. No history of GI bleeding. He has had a kidney stone. No cancer. No chronic skin condition. [place] [address] CONSULTATION Name: JERARDO ROMERO Room: [address]#: [id number] Admission: 03/21/19 Attend Phys: Anthony García MD Discharge: 03/24/19 Date of : 48 Report #: [id number] PHYSICAL EXAMINATION: GENERAL: Revealed elderly male, lying in bed, appeared in no acute distress. VITAL SIGNS: He had a blood pressure of 100/60, pulse is 90, and he is afebrile. HEENT: He was anicteric. Conjunctivae pink. Mucous membranes appear moist. NECK: Veins do not appear distended. No carotid bruits. Neck is supple. CHEST: Clear to auscultation. CARDIOVASCULAR: Regular rate and rhythm. ABDOMEN: Soft. EXTREMITIES: Had no edema. Dorsalis pedis pulse 2+ bilaterally. SKIN: Cool and dry. NEUROLOGIC: The right side is very slow moving and weak. RADIOLOGICAL DATA: His ECG on admission last night showed a sinus rhythm, evidence of previous anterior infarction with T-wave inversion in the lateral leads. His workup, he had an echocardiogram in 08/2018 here at [place] that showed an ejection fraction of 40% with biatrial enlargement. He had a portable chest x-ray last night that showed no acute abnormality. CT scan of the chest was performed without contrast that showed extensive coronary artery calcification. He had a CT scan of the abdomen and pelvis that showed retained stool, peripheral vascular disease. CT scan of the head was performed without contrast that showed atrophy, white matter changes. LABORATORY WORK: Sodium 138, BUN 34, creatinine 1.9, it was 1.5 in November. His troponin is 11. BNP 35,000. White blood cell count 14.8, hemoglobin 10.8, it was 10.7 in August. IMPRESSION AND RECOMMENDATIONS: 1. Non-ST elevation myocardial infarction. Recommend repeat cardiac catheterization. 2. Previous stroke. 3. Cardiomyopathy. 4. Chronic kidney disease. 5. Anemia. No history of bleeding. 6. Nausea and vomiting. Suspect secondary to non-ST elevation myocardial infarction. 7. History of kidney stones. 8. Diabetes. 9. Hypertension. 10. Hyperlipidemia. The patient is on a statin drug. <ELECTRONICALLY SIGNED> By: Robin Purcell MD, FACC 03/24/19 1636 0837 [id number] Purcell MD, FACC /nt
== END 2019-03-24 15:00 | disposition home health service (06) | DRG 871 ==
LOC: M.ERS 19:02 → M.ICU 21:30 → M.TBA-ER 21:30 → M.ICU 21:49 → M.2W 03-23 21:00
PROVIDERS: Family Medicine; Internal Medicine; ADMIT Internal Medicine
DX: A41.9 Sepsis, unspecified organism (principal); N17.0 Acute kidney failure with tubular necrosis; I21.4 Non-ST elevation (NSTEMI) myocardial infarction; N39.0 Urinary tract infection, site not specified; I69.351 Hemiplegia and hemiparesis following cerebral infarction affecting right dominant side; I42.9 Cardiomyopathy, unspecified; Z66 Do not resuscitate; K59.00 Constipation, unspecified; E11.22 Type 2 diabetes mellitus with diabetic chronic kidney disease; N18.9 Chronic kidney disease, unspecified; D64.9 Anemia, unspecified; I12.9 Hypertensive chronic kidney disease with stage 1 through stage 4 chronic kidney disease, or unspecified chronic kidney disease; E78.5 Hyperlipidemia, unspecified; E03.9 Hypothyroidism, unspecified; I25.2 Old myocardial infarction; Z79.84 Long term (current) use of oral hypoglycemic drugs; Z90.49 Acquired absence of other specified parts of digestive tract; Z95.5 Presence of coronary angioplasty implant and graft; Z79.82 Long term (current) use of aspirin; Z98.49 Cataract extraction status, unspecified eye; Z82.49 Family history of ischemic heart disease and other diseases of the circulatory system; Z87.442 Personal history of urinary calculi